=== PATIENT | female | born 2000 | race African-American/Black ===

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

== ENCOUNTER 2024-01-14 23:10 | Emergency (ER) | payer MEDICAID ==
[~2024-01-14] VITALS: Ht 160 cm; Wt 73.0 kg
[~2024-01-14 23:10] MED LIST changes: -FLUO-124 PO; +FLUO20CA39 PO
[2024-01-14 23:18] VITALS: TEMP 98.2; O2SAT 97
[2024-01-15] MEDS ORDERED: TOPUD PO (01:25)
[2024-01-15] MEDS ORDERED: NAPR500T7 MT (01:25)
[2024-01-15 03:29] VITALS: BP 135/96; PULSE 100; RESP 16
[2024-01-15] MEDS: KETOROLAC 60MG/2ML VIAL IM ONE (03:29)
== END 2024-01-15 03:52 | disposition home or self-care (01) ==
LOC: ER 23:10
DX: S92.251A Displaced fracture of navicular [scaphoid] of right foot, initial encounter for closed fracture (principal); J45.909 Unspecified asthma, uncomplicated; Z79.899 Other long term (current) drug therapy; V49.49XA Driver injured in collision with other motor vehicles in traffic accident, initial encounter; Y93.89 Activity, other specified; Y92.89 Other specified places as the place of occurrence of the external cause; Y99.8 Other external cause status
CPT/HCPCS: 99284; 29125; 73080; 73110; 73130; 73560; 96372; J1885